=== PATIENT | female | born 2000 | race African-American/Black ===

== ENCOUNTER 2019-01-17 10:36 | Emergency (ER) | payer SELFPAY ==
--- NOTE | 2019-01-17 10:50 | ER Document Report ---
ED Medical Screen (RME) - General Chief Complaint: Nausea/Vomiting Stated Complaint: VOMITING Time Seen by Provider: 01/17/19 10:49 Mode of Arrival: Ambulatory Information source: Patient TRAVEL OUTSIDE OF THE [place] IN LAST 30 DAYS: No - HPI Patient complains to provider of: vomiting Onset: Other - pt with c/o vomiting intermittently for the past several weeks. Denies diarrhea - Related Data Allergies/Adverse Reactions: No Known Allergies Allergy (Verified 01/17/19 10:37) Physical Exam - Vital signs Vitals: Temp Pulse Resp BP Pulse Ox 98.5 F 73 16 119/65 100 01/17/19 10:40 01/17/19 10:40 01/17/19 10:40 01/17/19 10:40 01/17/19 10:40 Course - Vital Signs Vital signs: Temp Pulse Resp BP Pulse Ox 98.5 F 73 16 119/65 100 01/17/19 10:40 01/17/19 10:40 01/17/19 10:40 01/17/19 10:40 01/17/19 10:40
[2019-01-17 11:33] LABS: APPEARANCE,URINE SLIGHTLY-CLOUDY; BILIRUBIN,URINE NEGATIVE (NEGATIVE); COLOR,URINE YELLOW; GLUCOSE, URINE NEGATIVE (NEGATIVE); KETONES,URINE NEGATIVE (NEGATIVE); LEUKOCYTE ESTERASE,URINE NEGATIVE (NEGATIVE); NITRITE,URINE NEGATIVE (NEGATIVE); PROTEIN,URINE NEGATIVE (NEGATIVE); URINE SPECIFIC GRAVITY 1.011; UROBILINOGEN,URINE NEGATIVE mg/dL (<2.0)
[2019-01-17] MEDS ORDERED: ONDANSETRON 4 MG TAB.RAPDIS PO ONE (11:49)
--- NOTE | 2019-01-17 11:49 | ER Document Report ---
ED General - General Chief Complaint: Nausea/Vomiting Stated Complaint: VOMITING Time Seen by Provider: 01/17/19 10:49 Primary Care Provider: [facility] [Provider Group] - Follow up in 3-5 days Mode of Arrival: Ambulatory TRAVEL OUTSIDE OF THE [place] IN LAST 30 DAYS: No - HPI Notes: Patient is a 18-year-old female that presents to the emergency department for chief complaint of cough, hemoptysis, and vomiting. Patient reports daily cough with intermittent episodes of hemoptysis. She states it is usually a dark red and streaky. She has not had any hemoptysis today. She does states she smokes tobacco occasionally and smokes marijuana daily and last smoked a few hours ago. Patient is also had nausea and vomiting for the last few months. She states it is not every day but intermittently she will have 2-3 episodes of vomiting. She has had a negative home test. Patient states that she has missed so much work that work has requested she obtain a doctor's note prior to returning which is why she is in the emergency room today. She denies any chest pain but does endorse some dyspnea with exertion. She states her mother has had a DVT before but she is not sure the cause. She denies any lower extremity cramping or swelling. She denies any recent estrogen use, surgery, travel, immobilizations, palpitations, light headedness or chest pain. Past Medical History: Negative Past Surgical History: Negative Social History: Daily marijuana, occasional tobacco, denies alcohol Family History: Reviewed and noncontributory for presenting illness Allergies: Reviewed, see documented allergy list. REVIEW OF SYSTEMS: CONSTITUTIONAL : No fever No chills No diaphoresis No recent illness EENT: No vision changes No congestion No sore throat CARDIOVASCULAR: No chest pain No palpitations RESPIRATORY: shortness of breath cough difficulty breathing GASTROINTESTINAL: No abdominal pain nausea vomiting No diarrhea GENITOURINARY: No dysuria No hematuria No difficulty urinating MUSCULOSKELETAL: No back pain No leg pain No arm pain SKIN: No rashes No lesions LYMPHATIC: No swollen, enlarged glands. NEUROLOGICAL: No lightheadedness No headache No weakness No paresthesias PSYCHIATRIC: No anxiety No depression PHYSICAL EXAMINATION: Vital signs reviewed, nursing noted reviewed. GENERAL: Well-appearing, well-nourished and in no acute distress. HEAD: Atraumatic, normocephalic. EYES: Eyes appear normal, extraocular movements intact, sclera anicteric, conjunctiva are normal. ENT: nares patent, oropharynx clear without exudates. Moist mucous membranes. NECK: Normal range of motion, supple without lymphadenopathy LUNGS: Breath sounds clear to auscultation bilaterally and equal. No wheezes rales or rhonchi. HEART: Regular rate and rhythm without murmurs ABDOMEN: Soft, nontender, normoactive bowel sounds. No rebound, guarding, or rigidity. No masses appreciated. EXTREMITIES: Nontender, good range of motion, no pitting or edema. NEUROLOGICAL: No focal neurological deficits. Moves all extremities spontaneously Motor and sensory grossly intact on exam. PSYCH: Normal mood, normal affect. SKIN: Warm, Dry, normal turgor, no rashes or lesions noted on exposed skin - Related Data Allergies/Adverse Reactions: No Known Allergies Allergy (Verified 01/17/19 10:37) Past Medical History - General Information source: Patient - Social History Smoking Status: Never Smoker Chew tobacco use (# tins/day): No Frequency of alcohol use: None Drug Abuse: None Family History: Reviewed & Not Pertinent Patient has suicidal ideation: No Patient has homicidal ideation: No Renal/ Medical History: Denies: Hx Peritoneal Dialysis Physical Exam - Vital signs Vitals: Temp Pulse Resp BP Pulse Ox 98.5 F 73 16 119/65 100 01/17/19 10:40 01/17/19 10:40 01/17/19 10:40 01/17/19 10:40 01/17/19 10:40 Course - Re-evaluation Re-evalutation: 01/17/19 11:48 Vitals reviewed. Nursing notes reviewed. Patient is resting comfortably and in no acute distress. Her lung sounds are clear to auscultation bilaterally. Patient was given Zofran for her nausea. She was counseled at length on stopping daily marijuana which may be the cause of her persistent nausea and vomiting as well as cough and hemoptysis. Blood work will be obtained to screen for underlying PE given her family history and complaint of hemoptysis. 01/17/19 12:34 Patient's lab work shows a negative d-dimer and my suspicion for PE is very minimal, I do not feel CTA is currently indicated. She has no leukocytosis. She has normal renal function. Patient is not anemic. Chest x-ray is still pending. 01/17/19 13:23 Patient's x-ray shows no acute cardia pulmonary process. She is in no acute respiratory distress. She is requesting to leave the emergency room. I gave her a referral at the [facility] and recommended establishing with a primary care to further investigate her ongoing issues. She will return to the emergency room for new or worsening symptoms. She was again encouraged to stop smoking marijuana. She is stable at discharge Laboratory 01/17/19 01/17/19 01/17/19 11:01 11:31 11:31 WBC 5.9 RBC 4.49 Hgb 14.1 Hct 41.1 MCV 92 MCH 31.4 MCHC 34.3 RDW 15.7 H Plt Count 322 Seg Neutrophils % 47.8 Lymphocytes % 40.0 Monocytes % 10.0 Eosinophils % 1.5 Basophils % 0.7 Absolute Neutrophils 2.8 Absolute Lymphocytes 2.4 Absolute Monocytes 0.6 Absolute Eosinophils 0.1 Absolute Basophils 0.0 D-Dimer Sodium 140.8 Potassium 3.9 Chloride 105 Carbon Dioxide 26 Anion Gap 10 BUN 7 Creatinine 0.73 Est GFR ( Amer) > 60 Est GFR (Non-Af Amer) > 60 Glucose 84 Calcium 10.4 H Total Bilirubin 0.4 Direct Bilirubin 0.1 Neonat Total Bilirubin Not Reportable Neonat Direct Bilirubin Not Reportable Neonat Indirect Bili Not Reportable AST 21 ALT 25 Alkaline Phosphatase 85 Total Protein 7.5 Albumin 4.4 Urine Color YELLOW Urine Appearance SLIGHTLY-CLOUDY Urine pH 7.0 Ur Specific [place] 1.011 Urine Protein NEGATIVE Urine Glucose (UA) NEGATIVE Urine Ketones NEGATIVE Urine Blood NEGATIVE Urine Nitrite NEGATIVE Urine Bilirubin NEGATIVE Urine Urobilinogen NEGATIVE Ur Leukocyte Esterase NEGATIVE Urine WBC (Auto) 1 Squamous Epi Cells Auto 6 Urine Mucus (Auto) RARE Urine Ascorbic Acid NEGATIVE Urine HCG, Qual NEGATIVE 01/17/19 11:31 WBC RBC Hgb Hct MCV MCH MCHC RDW Plt Count Seg Neutrophils % Lymphocytes % Monocytes % Eosinophils % Basophils % Absolute Neutrophils Absolute Lymphocytes Absolute Monocytes Absolute Eosinophils Absolute Basophils D-Dimer 0.46 Sodium Potassium Chloride Carbon Dioxide Anion Gap BUN Creatinine Est GFR ( Amer) Est GFR (Non-Af Amer) Glucose Calcium Total Bilirubin Direct Bilirubin Neonat Total Bilirubin Neonat Direct Bilirubin Neonat Indirect Bili AST ALT Alkaline Phosphatase Total Protein Albumin Urine Color Urine Appearance Urine pH Ur Specific [place] Urine Protein Urine Glucose (UA) Urine Ketones Urine Blood Urine Nitrite Urine Bilirubin Urine Urobilinogen Ur Leukocyte Esterase Urine WBC (Auto) Squamous Epi Cells Auto Urine Mucus (Auto) Urine Ascorbic Acid Urine HCG, Qual Chest X-Ray 01/17/19 12:34 IMPRESSION: NO SIGNIFICANT RADIOGRAPHIC FINDING IN THE CHEST. - Vital Signs Vital signs: Temp Pulse Resp BP Pulse Ox 98.5 F 73 16 119/65 100 01/17/19 10:40 01/17/19 10:40 01/17/19 10:40 01/17/19 10:40 01/17/19 10:40 - Laboratory Result Diagrams: 01/17/19 11:31 01/17/19 11:31 Laboratory results interpreted by me: 01/17/19 01/17/19 11:31 11:31 RDW 15.7 H Calcium 10.4 H Discharge - Discharge Clinical Impression: Hemoptysis Dyspnea Qualifiers: Dyspnea type: other forms of dyspnea Qualified Code(s): R06.09 - Other forms of dyspnea Cyclical vomiting Qualifiers: Vomiting Intractability: non-intractable Nausea presence: with nausea Qualified Code(s): G43.A0 - Cyclical vomiting, not intractable Condition: Stable Disposition: HOME, SELF-CARE Instructions: Hemoptysis ([facility]), Nausea or Vomiting, Nonspecific ([facility]) Additional Instructions: Please return to the emergency department if you have any worsening, or concern of your symptoms. Please return to the emergency department if you develop chest pain, difficulty breathing, severe abdominal pain, or ongoing vomiting. Please follow-up with your primary care physician in 2-3 days and any other recommended physicians. If prescribed, take all medications as directed. If you have any questions or concerns do not hesitate to return the emergency department for evaluation. Stop smoking marijuana as this is a likely cause of your cough and vomiting If you continue to cough up blood please return to the emergency room for reevaluation. Prescriptions: Ondansetron [Zofran Odt 4 mg Tablet] 1 tab PO Q4H PRN #15 tab.rapdis PRN Reason: For Nausea/Vomiting Referrals: [facility] [Provider Group] - Follow up in 3-5 days
[2019-01-17 11:58] LABS: ABSOLUTE EOSINOPHILS # (AUTO) 0.1 10^3/uL (0.0-0.6); ABSOLUTE LYMPHOCYTES (AUTO) 2.4 10^3/uL (0.5-4.7); ABSOLUTE MONOCYTES (AUTO) 0.6 10^3/uL (0.1-1.4); ABSOLUTE NEUT (AUTO) 2.8 10^3/uL (1.7-8.2); BASOPHILS % (AUTO) 0.7 % (0-2); EOSINOPHILS % (AUTO) 1.5 % (0-6); HEMATOCRIT 41.1 % (36.0-47.0); HEMOGLOBIN 14.1 g/dL (12.0-15.5); MEAN CORPUSCULAR HEMOGLOBIN 31.4 pg (27.0-33.4); MEAN CORPUSCULAR HGB CONC 34.3 g/dL (32.0-36.0); MEAN CORPUSCULAR VOLUME 92 fl (80-97); PLATELET COUNT 322 10^3/uL (150-450); RED BLOOD COUNT 4.49 10^6/uL (3.72-5.28); RED CELL DISTRIBUTION WIDTH 15.7 % (11.5-14.0); SEGMENTED NEUTROPHILS % (AUTO) 47.8 % (42-78); TOTAL CELLS COUNTED % (AUTO) 100 %; WHITE BLOOD COUNT 5.9 10^3/uL (4.0-10.5)
[2019-01-17 12:03] LABS: ALANINE AMINOTRANSFERASE 25 U/L (5-35); ALBUMIN 4.4 g/dL (3.7-5.6); ALKALINE PHOSPHATASE 85 U/L (50-135); ANION GAP 10 (5-19); ASPARTATE AMINO TRANSFERASE 21 U/L (5-30); BILIRUBIN,DIRECT 0.1 mg/dL (0.0-0.4); BILIRUBIN,TOTAL 0.4 mg/dL (0.2-1.3); BLOOD UREA NITROGEN 7 mg/dL (7-20); CALCIUM 10.4 mg/dL (8.4-10.2); CARBON DIOXIDE 26 mmol/L (22-30); CHLORIDE 105 mmol/L (98-107); GLUCOSE 84 mg/dL (75-110); POTASSIUM 3.9 mmol/L (3.6-5.0); SODIUM 140.8 mmol/L (137-145); TOTAL PROTEIN 7.5 g/dL (6.3-8.2)
--- NOTE | 2019-01-17 13:18 | RADIOLOGY REPORT (SQ) ---
EXAM DESCRIPTION: CHEST SINGLE VIEW COMPLETED DATE/TIME: 01/17/2019 1:11 pm REASON FOR STUDY: cough COMPARISON: None. NUMBER OF VIEWS: One view. TECHNIQUE: Single frontal radiographic view of the chest acquired. LIMITATIONS: None. FINDINGS: LUNGS AND PLEURA: No opacities, masses or pneumothorax. No pleural effusion. MEDIASTINUM AND HILAR STRUCTURES: No masses. Contour normal. HEART AND VASCULAR STRUCTURES: Heart normal in size. Normal vasculature. BONES: No acute findings. HARDWARE: None in the chest. OTHER: No other significant finding. IMPRESSION: NO SIGNIFICANT RADIOGRAPHIC FINDING IN THE CHEST. TECHNICAL DOCUMENTATION: JOB ID: [id number] [employer]- All Rights Reserved Reading location - IP/workstation name: [email or web address]
[2019-01-17 13:26] VITALS: BP 115/49
== END 2019-01-17 13:29 | disposition home or self-care (01) ==
LOC: ER 10:36
DX: R06.09 Other forms of dyspnea (principal); G43.A0 Cyclical vomiting, in migraine, not intractable; R05 Cough
CPT/HCPCS: 99283; 36415; 85025; 81025; 80053; 81001; 85379; 71045; S0119

== ENCOUNTER 2019-05-01 09:00 | Emergency (ER) | payer SELFPAY ==
--- NOTE | 2019-05-01 09:24 | ER Document Report ---
ED Medical Screen (RME) - General Chief Complaint: Vaginal Bleeding Stated Complaint: VAGINAL BLEEDING Time Seen by Provider: 05/01/19 09:23 Mode of Arrival: Ambulatory Information source: Patient Notes: Patient is a otherwise healthy 19-year-old female G2, P0 presenting to the emergency department with chief complaint of vaginal bleeding. Patient reports last normal period was on 03/23/2019. Patient reports she believes she is approximately 5 to 6 weeks . Patient states bleeding started several days ago, she states it is very heavy and she is now passing small clots. Patient does not know her blood type. Exam: Abdomen soft, nontender. I have greeted and performed a rapid initial assessment of this patient. A comprehensive ED assessment and evaluation of the patient, analysis of test results and completion of the medical decision making process will be conducted by additional ED providers. I have specifically instructed the patient or family members with the patient to immediately return to any nursing staff should anything change in the patient's condition or with their chief complaint. This medical record was dictated with voice recognizing software. There may be grammatical, syntax errors that are unintended. TRAVEL OUTSIDE OF THE [place] IN LAST 30 DAYS: No - Related Data Allergies/Adverse Reactions: No Known Allergies Allergy (Verified 05/01/19 09:01) Past Medical History Renal/ Medical History: Denies: Hx Peritoneal Dialysis Physical Exam - Vital signs Vitals: Temp Pulse Resp BP Pulse Ox 98.2 F 81 16 128/55 H 99 05/01/19 09:17 05/01/19 09:17 05/01/19 09:17 05/01/19 09:17 05/01/19 09:17 Course - Vital Signs Vital signs: Temp Pulse Resp BP Pulse Ox 98.2 F 81 16 128/55 H 99 05/01/19 09:17 05/01/19 09:17 05/01/19 09:17 05/01/19 09:17 05/01/19 09:17
[2019-05-01 09:49] LABS: ABSOLUTE EOSINOPHILS # (AUTO) 0.1 10^3/uL (0.0-0.6); ABSOLUTE LYMPHOCYTES (AUTO) 2.1 10^3/uL (0.5-4.7); ABSOLUTE MONOCYTES (AUTO) 0.6 10^3/uL (0.1-1.4); ABSOLUTE NEUT (AUTO) 3.4 10^3/uL (1.7-8.2); BASOPHILS % (AUTO) 0.7 % (0-2); EOSINOPHILS % (AUTO) 2.2 % (0-6); HEMATOCRIT 42.7 % (36.0-47.0); HEMOGLOBIN 14.1 g/dL (12.0-15.5); LYMPHOCYTES % (AUTO) 33.7 % (13-45); MEAN CORPUSCULAR HEMOGLOBIN 31.2 pg (27.0-33.4); MEAN CORPUSCULAR VOLUME 95 fl (80-97); MONOCYTES % (AUTO) 10.2 % (3-13); PLATELET COUNT 310 10^3/uL (150-450); RED BLOOD COUNT 4.52 10^6/uL (3.72-5.28); SEGMENTED NEUTROPHILS % (AUTO) 53.2 % (42-78); TOTAL CELLS COUNTED % (AUTO) 100 %; WHITE BLOOD COUNT 6.4 10^3/uL (4.0-10.5)
[2019-05-01 10:08] LABS: APPEARANCE,URINE SLIGHTLY-CLOUDY; BILIRUBIN,URINE NEGATIVE (NEGATIVE); COLOR,URINE YELLOW; GLUCOSE, URINE NEGATIVE (NEGATIVE); KETONES,URINE NEGATIVE (NEGATIVE); LEUKOCYTE ESTERASE,URINE NEGATIVE (NEGATIVE); NITRITE,URINE NEGATIVE (NEGATIVE); PROTEIN,URINE NEGATIVE (NEGATIVE); URINE SPECIFIC GRAVITY 1.023; UROBILINOGEN,URINE NEGATIVE mg/dL (<2.0)
--- NOTE | 2019-05-01 10:59 | RADIOLOGY REPORT (SQ) ---
EXAM DESCRIPTION: U/S OB TRANSVAGINAL W/O DOP COMPLETED DATE/TIME: 05/01/2019 10:31 am REASON FOR STUDY: preg, vag bleed COMPARISON: None. TECHNIQUE: Transvaginal static and realtime grayscale images acquired of the pelvis. Additional jeramie cted spectral and color Doppler images recorded. All images stored on PACs. [id number] CLINICAL DATES: LMP 03/23/2019. 5 weeks 4 days LIMITATIONS: None. FINDINGS: FETUS: No intrauterine gestation is identified at this time. UTERUS: No masses. No anomalies. CERVICAL LENGTH: 2.9 cm. Closed. RIGHT ADNEXA: Normal ovary with normal vascular flow. 3.3 x 2 x 1.6 cm. There is a small cyst measu ring 18 x 10 x 13 mm. No adnexal free fluid. No adnexal masses. LEFT ADNEXA: Normal ovary with normal vascular flow. 2.3 x 1.8 x 1.5 cm. No adnexal free fluid. No adnexal masses. FREE FLUID: None. OTHER: The endometrium measures 6 mm. IMPRESSION: No intrauterine gestation is seen at this time. Follow-up as clinically indicated. TECHNICAL DOCUMENTATION: JOB ID: [id number] [employer]- All Rights Reserved rev-03/14 Reading location - IP/workstation name: [email or web address]
--- NOTE | 2019-05-01 11:08 | ER Document Report ---
ED General - General Chief Complaint: Vaginal Bleeding Stated Complaint: VAGINAL BLEEDING Time Seen by Provider: 05/01/19 09:23 Mode of Arrival: Ambulatory Notes: 19-year-old G2, P0 female LMP 03/23/2019 presents to the emergency department with chief complaint of vaginal bleeding. She believes she is 5 to 6 weeks . She said her bleeding started on Saturday as spotting and has gotten heavier to the point where she is now passing small clots. She denies dizziness or lightheadedness, weakness, numbness or paresthesias, complains of abdominal cramping, denies any acute shortness of breath or chest pain. Denies urinary symptoms. Does not know her blood type. No other complaints TRAVEL OUTSIDE OF THE [place] IN LAST 30 DAYS: No - Related Data Allergies/Adverse Reactions: No Known Allergies Allergy (Verified 05/01/19 09:01) Past Medical History - General Information source: Patient - Social History Smoking Status: Unknown if Ever Smoked Family History: Reviewed & Not Pertinent Patient has suicidal ideation: No Patient has homicidal ideation: No Renal/ Medical History: Denies: Hx Peritoneal Dialysis Review of Systems - Review of Systems Constitutional: See HPI EENT: No symptoms reported Cardiovascular: See HPI Respiratory: See HPI Gastrointestinal: See HPI Genitourinary: See HPI Female Genitourinary: See HPI Musculoskeletal: No symptoms reported Skin: No symptoms reported Hematologic/Lymphatic: No symptoms reported Neurological/Psychological: See HPI Physical Exam - Vital signs Vitals: Temp Pulse Resp BP Pulse Ox 98.2 F 81 16 128/55 H 99 05/01/19 09:17 05/01/19 09:17 05/01/19 09:17 05/01/19 09:17 05/01/19 09:17 - Notes Notes: PHYSICAL EXAMINATION: Reviewed vital signs and charting by RN GENERAL: Alert, interacts well. No acute distress. HEAD: Normocephalic, atraumatic. EYES: Pupils equal and round. Extraocular movements intact. ENT: Oral mucosa moist, tongue midline. NECK: Full range of motion. Trachea midline. LUNGS: Clear to auscultation bilaterally, no wheezes, rales, or rhonchi. No respiratory distress. HEART: Regular rate and rhythm. No murmur ABDOMEN: soft, non-tender. No distention. Bowel sounds present EXTREMITIES: Moves all 4 extremities spontaneously. No edema, No cyanosis. PSYCH: Normal affect, normal mood. SKIN: Warm, dry, normal turgor. No rashes or lesions noted. Course - Re-evaluation Re-evalutation: 05/01/19 10:59 Overall well-appearing in no acute distress. Transvaginal ultrasound completed and pending. RhoGam completed and patient is B negative. Patient will receive the RhoGam shot. 05/01/19 11:58 Ultrasound completed. No evidence of intrauterine gestation. No evidence of ectopic at this time. Cervical os was closed. Plan to perform a pelvic exam. 05/01/19 12:42 Pelvic exam did show some mild bleeding, cervical os was closed. I explained to patient that it just may be too early because she is only 5 weeks but it could also be a miscarriage as well. I gave her strict instructions to return here in 48 hours for repeat testing. Her vital signs are within normal limits. She is stable for discharge. - Vital Signs Vital signs: Temp Pulse Resp BP Pulse Ox 98.2 F 81 16 128/55 H 99 05/01/19 09:17 05/01/19 09:17 05/01/19 09:17 05/01/19 09:17 05/01/19 09:17 - Laboratory Result Diagrams: 05/01/19 09:38 Laboratory results interpreted by me: 05/01/19 05/01/19 05/01/19 09:38 09:38 09:38 RDW 15.0 H Beta HCG, Quant 1370.20 H Urine Blood LARGE H Discharge - Discharge Clinical Impression: Vaginal bleeding during Condition: Stable Disposition: HOME, SELF-CARE Additional Instructions: You were seen in the emergency department this morning for vaginal bleeding while . Your ultrasound at the time did not show any live intrauterine but it might just be too early as you were only about 5 weeks . It is very important that you follow-up here in 48 hours for repeat testing. Please follow closely with your primary care [facility] [employer]. Please return if you develop severe abdominal pain, bleeding that goes through more than 2 pads for more than 2 hours, pass out, or have any other symptoms that are concerning to you.
[2019-05-01 12:51] VITALS: BP 112/65
--- NOTE | 2019-05-02 14:39 | ER Document Report ---
Doctor's Note Notes: 05/02/19 14:37 I received a call from the blood bank stating that the patient's RhoGam was still in the lab and she never received it prior to discharge yesterday. Patient is Rh- type B. I attempted to call the patient to let her know but there was no answer and it did not go to voicemail. Patient is supposed to follow-up for 48-hour follow-up on Saturday, May 03, 2019. I will make another attempt to call her today.
== END 2019-05-01 12:53 | disposition home or self-care (01) ==
LOC: ER 09:00
DX: O20.9 Hemorrhage in early pregnancy, unspecified (principal); Z3A.01 Less than 8 weeks gestation of pregnancy
CPT/HCPCS: 36415; 76817; 81001; 84702; 85025; 86850; 86900; 86901; 99284

== ENCOUNTER 2019-05-03 07:27 | Emergency (ER) | payer SELFPAY ==
--- NOTE | 2019-05-03 09:05 | ER Document Report ---
ED Medical Screen (RME) - General Chief Complaint: Vag Bleeding, +preg <12wks Stated Complaint: VAGINAL BLEEDING Time Seen by Provider: 05/03/19 08:55 Mode of Arrival: Ambulatory Information source: Patient Notes: A patient returns to the emergency department for repeat beta-hCG. Patient was evaluated 2 days ago for vaginal bleeding . Patient reports bleeding has decreased denies abdominal pain. Review of chart notes patient is been negative and has not received her RhoGam injection. No other complaints such as fever vomiting diarrhea. Patient is G2, P0. She would like to wait for her hCG results I have greeted and performed a rapid initial assessment of this patient. A comprehensive ED assessment and evaluation of the patient, analysis of test results and completion of the medical decision making process will be conducted by additional ED providers. Dictation of this chart was performed using voice recognition software; therefore, there may be some unintended grammatical errors. TRAVEL OUTSIDE OF THE [place] IN LAST 30 DAYS: No - Related Data Allergies/Adverse Reactions: No Known Allergies Allergy (Verified 05/03/19 07:31) Past Medical History Renal/ Medical History: Denies: Hx Peritoneal Dialysis Physical Exam - Vital signs Vitals: Temp Pulse Resp BP Pulse Ox 99.3 F 82 16 118/61 98 05/03/19 07:33 05/03/19 07:33 05/03/19 07:33 05/03/19 07:33 05/03/19 07:33 Course - Vital Signs Vital signs: Temp Pulse Resp BP Pulse Ox 99.3 F 82 16 118/61 98 05/03/19 07:33 05/03/19 07:33 05/03/19 07:33 05/03/19 07:33 05/03/19 07:33
--- NOTE | 2019-05-03 09:46 | ER Document Report ---
ED General - General Chief Complaint: Vag Bleeding, +preg <12wks Stated Complaint: VAGINAL BLEEDING Time Seen by Provider: 05/03/19 08:55 Mode of Arrival: Ambulatory Notes: 19-year-old G2, P0 female LMP 03/23/2019 presents to the emergency department for 48-hour hCG recheck she believes she is 5 to 6 weeks . She started bleeding last Saturday when I saw her 48 hours ago she was still bleeding bright red blood and passing clots. Today she states that the bleeding has mostly subsided and just complains of a very minor dull pressure in her pelvic area. Transvaginal ultrasound at the time did not show a live intrauterine gestation but she was estimated to only be about 5 weeks . She denies dizziness or lightheadedness, weakness, numbness or paresthesias, complains of abdominal cramping, denies any acute shortness of breath or chest pain. Denies urinary symptoms. RhoGam was ordered but patient left before she received a shot and she is been negative. She will receive the shot here today. TRAVEL OUTSIDE OF THE [place] IN LAST 30 DAYS: No - Related Data Allergies/Adverse Reactions: No Known Allergies Allergy (Verified 05/03/19 07:31) Past Medical History - General Information source: Patient - Social History Smoking Status: Former Smoker Frequency of alcohol use: None Drug Abuse: None Family History: Reviewed & Not Pertinent Patient has suicidal ideation: No Patient has homicidal ideation: No Renal/ Medical History: Denies: Hx Peritoneal Dialysis Review of Systems - Review of Systems Constitutional: See HPI EENT: No symptoms reported Cardiovascular: See HPI Respiratory: See HPI Gastrointestinal: See HPI Genitourinary: See HPI Female Genitourinary: See HPI Musculoskeletal: No symptoms reported Skin: No symptoms reported Hematologic/Lymphatic: No symptoms reported Neurological/Psychological: No symptoms reported Physical Exam - Vital signs Vitals: Temp Pulse Resp BP Pulse Ox 99.3 F 82 16 118/61 98 05/03/19 07:33 05/03/19 07:33 05/03/19 07:33 05/03/19 07:33 05/03/19 07:33 - Notes Notes: PHYSICAL EXAMINATION: Reviewed vital signs and charting by RN GENERAL: Alert, interacts well. No acute distress. HEAD: Normocephalic, atraumatic. EYES: Pupils equal and round. Extraocular movements intact. ENT: Oral mucosa moist, tongue midline. NECK: Full range of motion. Trachea midline. LUNGS: Clear to auscultation bilaterally, no wheezes, rales, or rhonchi. No respiratory distress. HEART: Regular rate and rhythm. No murmur ABDOMEN: soft, very mild suprapubic tenderness. No distention. Bowel sounds present EXTREMITIES: Moves all 4 extremities spontaneously. No edema, No cyanosis. PSYCH: Normal affect, normal mood. SKIN: Warm, dry, normal turgor. No rashes or lesions noted. Course - Re-evaluation Re-evalutation: 05/03/19 09:49 Patient re-presents for 48-hour hCG check. Patient will also receive RhoGam shot as she is discharged last visit prior to receiving it. Labs pending. 05/03/19 10:18 Beta hCG has trended down from 1832 about 300. I explained to the patient that she most likely has suffered from a spontaneous . I told patient that she needs to follow-up with [facility] to trend her hCG until it goes to 0 and ensure there is no retained products of conception. Patient understands and agrees to plan. Vital signs are within normal limits. She is stable for discharge. - Vital Signs Vital signs: Temp Pulse Resp BP Pulse Ox 99.3 F 82 16 118/61 98 05/03/19 07:33 05/03/19 07:33 05/03/19 07:33 05/03/19 07:33 05/03/19 07:33 - Laboratory Laboratory results interpreted by me: 05/03/19 09:20 Beta HCG, Quant 348.32 H Discharge - Discharge Clinical Impression: Inapp chg hCG early preg, Miscarriage, threatened, early , Vaginal bleeding during Condition: Stable Disposition: HOME, SELF-CARE Additional Instructions: You were seen in the emergency department. Unfortunately, your hCG levels have dropped considerably. We expect these levels to double every 48 hours. This is very concerning for a probable miscarriage. It is important that you continue to trend these levels and follow-up with [facility] in 48 hours for a recheck. If you develop significant vaginal bleeding, have severe abdominal pain, have intractable nausea or vomiting, passout, have acute sh ortness of breath or chest pain, or have any other concerning symptoms please merely return to the emergency department. Referrals: BLAIR SALAZAR MD [ACTIVE STAFF] - Follow up as needed
[2019-05-03 10:50] VITALS: BP 125/61
== END 2019-05-03 10:50 | disposition home or self-care (01) ==
LOC: ER 07:27
DX: O20.0 Threatened abortion (principal); O26.891 Other specified pregnancy related conditions, first trimester; R10.9 Unspecified abdominal pain; Z3A.01 Less than 8 weeks gestation of pregnancy; Z87.891 Personal history of nicotine dependence
CPT/HCPCS: 99284; 86900; 86901; 36415; 86850; 84702; J2790

== ENCOUNTER 2019-05-03 13:59 | Emergency (ER) | payer SELFPAY ==
[2019-05-03 14:07] VITALS: BP 124/81
--- NOTE | 2019-05-03 15:05 | ER Document Report ---
HPI - HPI Patient complains to provider of: RhoGam injection Time Seen by Provider: 05/03/19 14:54 Onset: Yesterday Onset/Duration: Persistent Pain Level: 0 Context: Patient has been seen recently for vaginal bleeding and is Rh-. Patient has a downward trending hCG test worrisome for miscarriage. Patient has not received a RhoGam injection since her bleeding started. Patient was advised to return for RhoGam shot. Patient denies any lightheadedness dizziness. Patient states that bleeding has started to lessen. Exacerbated by: Denies Relieved by: Denies Similar symptoms previously: Yes Recently seen / treated by doctor: Yes - ROS ROS below otherwise negative: Yes Systems Reviewed and Negative: Yes All other systems reviewed and negative - CONSTITUTIONAL Constitutional: DENIES: Fever, Chills - NEURO Neurology: DENIES: Headache, Weakness - GASTROINTESTINAL Gastrointestinal: DENIES: Nausea - REPRODUCTIVE Reproductive: REPORTS: :, Abnormal bleeding / discharge - DERM Skin Color: Normal Skin Problems: None Past Medical History - General Information source: Patient - Social History Smoking Status: Never Smoker Frequency of alcohol use: None Drug Abuse: None Occupation: None Lives with: Spouse/Significant other Family History: Reviewed & Not Pertinent - Medical History Medical History: Negative Renal/ Medical History: Denies: Hx Peritoneal Dialysis Surgical Hx: Negative Vertical Provider Document - CONSTITUTIONAL Agree With Documented VS: Yes Exam Limitations: No Limitations General Appearance: WD/WN, No Apparent Distress - INFECTION CONTROL TRAVEL OUTSIDE OF THE [place] IN LAST 30 DAYS: No - HEENT HEENT: Atraumatic, Normocephalic - NECK Neck: Normal Inspection - RESPIRATORY Respiratory: No Respiratory Distress - MUSCULOSKELETAL/EXTREMETIES Musculoskeletal/Extremeties: MAEW - NEURO Level of Consciousness: Awake, Alert, Appropriate Motor/Sensory: No Motor Deficit - DERM Integumentary: Warm, Dry Course - Vital Signs Vital signs: Temp Pulse Resp BP Pulse Ox 98.7 F 96 16 124/81 97 05/03/19 14:05 05/03/19 14:05 05/03/19 14:05 05/03/19 14:05 05/03/19 14:05 - Laboratory Laboratory results interpreted by me: 05/03/19 15:03 Reviewed labs from patient's previous ER visit. Discharge - Discharge Clinical Impression: Vagina bleeding, Need for rhogam due to Rh negative mother Condition: Stable Disposition: HOME, SELF-CARE Instructions: Rhogam ([facility]) Additional Instructions: Return immediately for any new or worsening symptoms Followup with your primary care provider, call tomorrow to make a followup appointment Follow-up with your dressage instructor for recheck, call tomorrow for an appointment Referrals: [facility] [Provider Group] - Follow up tomorrow
== END 2019-05-03 16:00 | disposition home or self-care (01) ==
LOC: ER 13:59
DX: O36.0990 Maternal care for other rhesus isoimmunization, unspecified trimester, not applicable or unspecified (principal); O46.90 Antepartum hemorrhage, unspecified, unspecified trimester; Z3A.00 Weeks of gestation of pregnancy not specified
CPT/HCPCS: 99283

== ENCOUNTER 2019-05-07 20:21 | Emergency (ER) | payer MEDICAID ==
--- NOTE | 2019-05-07 20:44 | ER Document Report ---
ED Medical Screen (RME) - General Chief Complaint: Psych Problem Stated Complaint: IVC Time Seen by Provider: 05/07/19 20:41 Mode of Arrival: Ambulatory Information source: Patient Notes: 19-year-old female presented to ED for IVC after she told a mental health worker that she had thoughts of suicide by taking a gun and shooting herself. According to the IVC paperwork she is abusing marijuana multiple joints a day and she is . Patient is alert oriented respirations regular and unlabored speaking in full sentences. She states she smokes 3 cigarettes a day and does not drink or do any drugs according to the paper she does smoke marijuana. She states she has a history of depression and bipolar and she lives with her significant other and their friend. Patient states she is not going on that blood and urine to be obtained and she is not going to have an EKG done. She states she felt was told that she just had to come and talk to somebody she did not know that she had to get blood and urine done. She states she had blood drawn today and she is not getting blood drawn again today. Patient was informed of the orders for IVC and she states it was not going to happen. I have greeted and performed a rapid initial assessment of this patient. A comprehensive ED assessment and evaluation of the patient, analysis of test results and completion of medical decision making process will be conducted by an additional ED providers. Dictation of this chart was performed using voice recognition software; therefore, there may be some unintended grammatical errors. TRAVEL OUTSIDE OF THE [place] IN LAST 30 DAYS: No - Related Data Allergies/Adverse Reactions: No Known Allergies Allergy (Verified 05/03/19 14:01) Past Medical History Renal/ Medical History: Denies: Hx Peritoneal Dialysis Physical Exam - Vital signs Vitals: Temp Pulse Resp BP Pulse Ox 98.5 F 90 16 92/65 L 98 05/07/19 20:30 05/07/19 20:30 05/07/19 20:30 05/07/19 20:30 05/07/19 20:30 Course - Vital Signs Vital signs: Temp Pulse Resp BP Pulse Ox 98.5 F 90 16 92/65 L 98 05/07/19 20:30 05/07/19 20:30 05/07/19 20:30 05/07/19 20:30 05/07/19 20:30
--- NOTE | 2019-05-07 22:34 | ER Document Report ---
Addendum entered and electronically signed by PAULETTE MURRELL MD 05/08/19 09:21: Discharge - Discharge Clinical Impression: Suicidal ideation, Marijuana abuse, Bereavement Condition: Stable Disposition: HOME, SELF-CARE Additional Instructions: You have been seen by both medical and behavioral health teams and have been deemed appropriate for discharge. You are encouraged to use your support system during this time of grief. You have been provided a local resource list of area providers if you change your mind for outpatient mental health services. DEPRESSION: Your evaluation reveals that you have mental depression. While symptoms may be vague, they often include disturbance of sleep, fatigue, loss of appetite, and general loss of interest in life. While depression may be a side effect of drugs, or a reaction to a major change in your life, many cases have no known cause. If depression is acute, and related to a major loss in your life, you can expect it to clear completely with time. If you have been depressed a long time, are prone to repeated bouts of depression or low mood, or have been thin ramirez of suicide, get help. Depression can be treated with anti-depressant medication and counselling. Long-term depression will often take a few weeks to clear, even with appropriate medication. Follow-up care is important. SUICIDAL IDEATION: Suicidal ideation is a common medical term for thoughts about suicide, which may be as detailed as a formulated plan, without the suicidal act itself. Although most people who undergo suicidal ideation do not commit suicide, some go on to make suicide attempts. The range of suicidal ideation varies greatly from fleeting to detailed planning, role playing, and unsuccessful attempts. While thoughts about suicide are common, most people do not carry out serious actions to commit suicide. Based upon your evaluation and discussion with you, we do not believe you are currently at risk to act upon your thoughts of suicide. You have agreed to return to the Emergency Department, at any time, if you feel inclined to act upon your suicidal thoughts. FOLLOW-UP CARE: If you have been referred to a physician for follow-up care, call the physicians office for an appointment as you were instructed or within the next two days. If you experience worsening or a significant change in your symptoms, notify the physician immediately or return to the Emergency Department at any time for re-evaluation. Referrals: [facility] [Outside] - Follow up as needed Addendum entered and electronically signed by DANA LYNNE LCSWA 05/08/19 08:55: Discharge - Discharge Clinical Impression: Suicidal ideation, Marijuana abuse, Bereavement Condition: Stable Disposition: HOME, SELF-CARE Additional Instructions: You have been seen by both medical and behavioral health teams and have been deemed appropriate for discharge. You are encouraged to use your support system during this time of grief. You have been provided a local resource list of area providers if you change your mind for outpatient mental health services. DEPRESSION: Your evaluation reveals that you have mental depression. While symptoms may be vague, they often include disturbance of sleep, fatigue, loss of appetite, and general loss of interest in life. While depression may be a side effect of drugs, or a reaction to a major change in your life, many cases have no known cause. If depression is acute, and related to a major loss in your life, you can expect it to clear completely with time. If you have been depressed a long time, are prone to repeated bouts of depression or low mood, or have been thinking of suicide, get help. Depression can be treated with anti-depressant medication and counselling. Long-term depression will often take a few weeks to clear, even with appropriate medication. Follow-up care is important. SUICIDAL IDEATION: Suicidal ideation is a common medical term for thoughts about suicide, which may be as detailed as a formulated plan, without the suicidal act itself. Although most people who undergo suicidal ideation do not commit suicide, some go on to make suicide attempts. The range of suicidal ideation varies greatly from fleeting to detailed planning, role playing, and unsuccessful attempts. While thoughts about suicide are common, most people do not carry out serious actions to commit suicide. Based upon your evaluation and discussion with you, we do not believe you are currently at risk to act upon your thoughts of suicide. You have agreed to return to the Emergency Department, at any time, if you feel inclined to act upon your suicidal thoughts. FOLLOW-UP CARE: If you have been referred to a physician for follow-up care, call the physicians office for an appointment as you were instructed or within the next two days. If you experience worsening or a significant change in your symptoms, notify the physician immediately or return to the Emergency Department at any time for re-evaluation. Referrals: [facility] [Outside] - Follow up as needed Original Note: ED Psych Disorder / Suicide - General Chief Complaint: Psych Problem Stated Complaint: IVC Time Seen by Provider: 05/07/19 20:41 Mode of Arrival: Ambulatory Information source: Patient TRAVEL OUTSIDE OF THE [place] IN LAST 30 DAYS: No - HPI Patient complains to provider of: Suicidal ideation Onset: Just prior to arrival Onset was: Sudden Quality of pain: No pain Severity: None Pain Level: Denies Suicide Risk Factors: Depressed Situational problems related to: Recent , Other - Patient recently lost of 5 weeks. Suicide Attempt Method: Overdose Normal mood: Yes Associated symptoms: Depressed Similar symptoms previously: Yes Recently seen / treated by doctor: No - Related Data Allergies/Adverse Reactions: No Known Allergies Allergy (Verified 05/03/19 14:01) Past Medical History - General Information source: Patient - Social History Smoking Status: Current Every Day Smoker Frequency of alcohol use: None Drug Abuse: Marijuana Family History: Reviewed & Not Pertinent Patient has suicidal ideation: Yes Patient has homicidal ideation: Yes Renal/ Medical History: Denies: Hx Peritoneal Dialysis Psychiatric Medical History: Reports: Hx Bipolar Disorder, Hx Depression Review of Systems - Review of Systems Constitutional: No symptoms reported EENT: No symptoms reported Cardiovascular: No symptoms reported Respiratory: No symptoms reported Gastrointestinal: No symptoms reported Genitourinary: No symptoms reported Female Genitourinary: No symptoms reported Musculoskeletal: No symptoms reported Skin: No symptoms reported Hematologic/Lymphatic: No symptoms reported Neurological/Psychological: Depression, Suicidal ideation -: Yes All other systems reviewed and negative Physical Exam - Vital signs Vitals: Temp Pulse Resp BP Pulse Ox 98.5 F 90 16 92/65 L 98 05/07/19 20:30 05/07/19 20:30 05/07/19 20:30 05/07/19 20:30 05/07/19 20:30 Interpretation: Normal - General General appearance: Appears well, Alert - HEENT Head: Normocephalic, Atraumatic Eyes: Normal Pupils: PERRL - Respiratory Respiratory status: No respiratory distress Chest status: Nontender Breath sounds: Normal Chest palpation: Normal - Cardiovascular Rhythm: Regular Heart sounds: Normal auscultation Murmur: No - Abdominal Inspection: Normal Distension: No distension Bowel sounds: Normal Tenderness: Nontender Organomegaly: No organomegaly - Back Back: Normal, Nontender - Extremities General upper extremity: Normal inspection, Nontender, Normal color, Normal ROM, Normal temperature General lower extremity: Normal inspection, Nontender, Normal color, Normal ROM, Normal temperature, Normal weight bearing. No: Katerin's sign - Neurological Neuro grossly intact: Yes Cognition: Normal Orientation: AAOx4 [place] Coma Scale Eye Opening: Spontaneous Noe Coma Scale Verbal: Oriented [place] Coma Scale Motor: Obeys Commands [place] Coma Scale Total: 15 Speech: Normal Motor strength normal: LUE, RUE, LLE, RLE Sensory: Normal - Psychological Associated symptoms: Normal affect, Normal mood - Skin Skin Temperature: Warm Skin Moisture: Dry Skin Color: Normal Course - Re-evaluation Re-evalutation: 05/08/19 01:01 Patient is medically cleared for psychiatric evaluation. - Vital Signs Vital signs: Temp Pulse Resp BP Pulse Ox 98.5 F 90 16 92/65 L 98 05/07/19 20:30 05/07/19 20:30 05/07/19 20:30 05/07/19 20:30 05/07/19 20:30 - Laboratory Result Diagrams: 05/07/19 23:15 05/07/19 23:15 Laboratory results interpreted by me: 05/07/19 05/07/19 05/07/19 23:15 23:15 23:15 RDW 15.1 H Beta HCG, Quant 51.95 H Urine Protein Salicylates < 1.0 L Acetaminophen < 10 L 05/07/19 23:16 RDW Beta HCG, Quant Urine Protein 30 H Salicylates Acetaminophen Discharge - Discharge Clinical Impression: Suicidal ideation, Marijuana abuse Condition: Stable Disposition: PSYCH HOSP/UNIT
[2019-05-07 23:25] LABS: ABSOLUTE BASOPHILS # (AUTO) 0.1 10^3/uL (0.0-0.2); ABSOLUTE LYMPHOCYTES (AUTO) 1.5 10^3/uL (0.5-4.7); ABSOLUTE MONOCYTES (AUTO) 0.6 10^3/uL (0.1-1.4); ABSOLUTE NEUT (AUTO) 5.6 10^3/uL (1.7-8.2); BASOPHILS % (AUTO) 0.7 % (0-2); EOSINOPHILS % (AUTO) 0.3 % (0-6); HEMATOCRIT 40.4 % (36.0-47.0); HEMOGLOBIN 13.6 g/dL (12.0-15.5); LYMPHOCYTES % (AUTO) 18.7 % (13-45); MEAN CORPUSCULAR HEMOGLOBIN 31.3 pg (27.0-33.4); MEAN CORPUSCULAR HGB CONC 33.6 g/dL (32.0-36.0); MEAN CORPUSCULAR VOLUME 93 fl (80-97); MONOCYTES % (AUTO) 7.8 % (3-13); PLATELET COUNT 324 10^3/uL (150-450); RED BLOOD COUNT 4.33 10^6/uL (3.72-5.28); RED CELL DISTRIBUTION WIDTH 15.1 % (11.5-14.0); SEGMENTED NEUTROPHILS % (AUTO) 72.5 % (42-78); TOTAL CELLS COUNTED % (AUTO) 100 %; WHITE BLOOD COUNT 7.8 10^3/uL (4.0-10.5)
[2019-05-07 23:49] LABS: ALANINE AMINOTRANSFERASE 19 U/L (9-52); ALBUMIN 4.6 g/dL (3.5-5.0); ALKALINE PHOSPHATASE 80 U/L (38-126); ANION GAP 11 (5-19); ASPARTATE AMINO TRANSFERASE 26 U/L (14-36); BILIRUBIN,DIRECT 0.2 mg/dL (0.0-0.4); BILIRUBIN,TOTAL 0.2 mg/dL (0.2-1.3); BLOOD UREA NITROGEN 11 mg/dL (7-20); CALCIUM 10.1 mg/dL (8.4-10.2); CARBON DIOXIDE 25 mmol/L (22-30); CHLORIDE 105 mmol/L (98-107); GLUCOSE 98 mg/dL (75-110); POTASSIUM 3.9 mmol/L (3.6-5.0); SODIUM 140.7 mmol/L (137-145); TOTAL PROTEIN 7.9 g/dL (6.3-8.2)
[2019-05-07 23:53] LABS: ACETAMINOPHEN < 10 ug/mL (10-30); ALCOHOL < 10 mg/dL (NONE DETECTED); SALICYLATE < 1.0 mg/dL (2.0-20.0)
[2019-05-08 00:04] LABS: APPEARANCE,URINE SLIGHTLY-CLOUDY; BILIRUBIN,URINE NEGATIVE (NEGATIVE); COLOR,URINE YELLOW; GLUCOSE, URINE NEGATIVE (NEGATIVE); KETONES,URINE NEGATIVE (NEGATIVE); LEUKOCYTE ESTERASE,URINE NEGATIVE (NEGATIVE); NITRITE,URINE NEGATIVE (NEGATIVE); PROTEIN,URINE 30 mg/dL (NEGATIVE); URINE SPECIFIC GRAVITY 1.026; UROBILINOGEN,URINE NEGATIVE mg/dL (<2.0)
[2019-05-08 00:10] LABS: URINE AMPHETAMINES SCREEN NEGATIVE; URINE BARBITURATES SCREEN NEGATIVE; URINE BENZODIAZEPINES SCREEN NEGATIVE; URINE COCAINE SCREEN NEGATIVE; URINE MARIJUANA (THC) SCREEN UNCONFIRMED POSITIVE; URINE METHADONE SCREEN NEGATIVE; URINE PHENCYCLIDINE SCREEN NEGATIVE
[2019-05-08 05:55] VITALS: BP 113/68
--- NOTE | 2019-05-08 14:34 | PSYCHOLOGICAL NOTE ---
Psych Note - Psych Note Date seen by psych provider: 05/08/19 Time seen by psych provider: 07:40 Psych Note: Reason for Consult: IVC 19-year-old female presented to ED for IVC after she told a mental health worker that she had thoughts of suicide by taking a gun and shooting herself. Patient is alert and orientated to person, place, time and circumstance. Mood is irritable with tearful affect. Patient reports passive suicidal and homicidal ideation i.e. no plans means or intent. Patient disclosed venting in regards to her grief denies plans means intent. Delusions are absent behaviors congruent with an intact reality based presentation i.e. organized linear thought process. Eye contact was well-maintained. Conversational speech is within normal rate, tone and prosody. Intellectual abilities appear to be within the average range. Attention and concentration are currently good. Insight, judgment, impulse control are fair. bereavement substance abuse; THC no medication recommendations at this time Impression/plan: Patient is recommended for rescind of IVC and is cleared from acute psychiatric services. Patient does not meet IVC criteria per [place] GS 122C. Patient disclosed passive suicidal and homicidal ideation i.e. no plans means or intent. Patient had a miscarriage approximately 1 week ago and was referred to speak with [employer] crisis. Patient states that after repeatedly denying she finally agreed to meet with mobile farmworker [employer] last night ([facility] worker contacted the patient by phone). She disclosed she felt that she was able to speak with the worker to vent her feelings in regards to her grief and frustration. Patient demonstrated forward thinking in regards to identifying she that she is very young and has "plenty of time" to have children and that if she "harmed someone else" she would not be able to have family or children; "there would be no point, you can't have children when serving 20 years.... I even told the lady I would never do anything...I was just venting, I thought it was confidential and she could help me." Patient states she had no plans means or intent was only trying to verbalize her emotions and regarding her grief. Patient reports she is not interested in trying to seek therapeutic services after this event; however, agrees to use her natural support system of her boyfriend and friends. Patient denies wanting any other therapeutic services or medication management. Patient received a resource list of area providers including mobile crisis contact information if she changes her mind and would like professional outpatient services. Dr. Andersen was consulted to care management of this patient; 10 physicians in agreement with recommendations and disposition.
--- NOTE | 2019-05-08 22:45 | EKG REPORT ---
SEVERITY:- NORMAL ECG - SINUS RHYTHM : Confirmed by: Temitope Cruz MD 08-May-2019 22:44:12
== END 2019-05-08 09:36 | disposition home or self-care (01) ==
LOC: ER 20:21
DX: R45.851 Suicidal ideations (principal); F12.10 Cannabis abuse, uncomplicated; Z63.4 Disappearance and death of family member; F17.200 Nicotine dependence, unspecified, uncomplicated
CPT/HCPCS: 36415; 80053; 80307; 81001; 84443; 84702; 85025; 93005; 93010; 99285

== ENCOUNTER 2019-07-08 23:44 | Emergency (ER) | payer MEDICAID ==
[2019-07-08 23:50] VITALS: BP 143/78
--- NOTE | 2019-07-09 01:25 | ER Document Report ---
ED Psych Disorder / Suicide - General Chief Complaint: Psych Problem Stated Complaint: SUICIDIAL IDEATIONS Time Seen by Provider: 07/09/19 01:25 Mode of Arrival: Ambulatory Information source: Patient, Relative Notes: HISTORY OF PRESENT ILLNESS: Patient is a 19-year-old female with a past medical history of chronic depression starting after she lost her child who presents with persistent de pression. Patient reports that she "knows I need help, "but denies active suicidal/homicidal ideations. Patient reports that she has had these in the past but does not have any currently. Onset: "Months ago" Provocation: "It all started when I lost my baby" Quality: Depression Radiation: Global Severity: Moderate Timing: Constant SI/HI: None Hallucinations: None Current therapist: None Current treatment: None REVIEW OF SYSTEMS: CONSTITUTIONAL : Denies fever or chills, no sweats. Denies recent illness. EENT: Denies eye, ear, throat, or mouth pain or symptoms. Denies nasal or sinus congestion. CARDIOVASCULAR: Denies chest pain. RESPIRATORY: Denies cough, cold, or chest congestion. Denies shortness of breath, difficulty breathing, or wheezing. GASTROINTESTINAL: Denies abdominal pain. Denies nausea, vomiting, or diarrhea. Denies constipation. GENITOURINARY: Denies difficulty urinating, painful urination, burning, frequency, or blood in urine. FEMALE GENITOURINARY: Denies vaginal bleeding, abnormal or irregular periods. Last menstrual period MUSCULOSKELETAL: Denies neck or back pain or joint pain or swelling. SKIN: Denies rash or skin lesions. HEMATOLOGIC : Denies easy bruising or bleeding. LYMPHATIC: Denies swollen, enlarged glands. NEUROLOGICAL: Denies altered mental status or loss of consciousness. Denies headache. Denies weakness or paralysis or loss of use of either side. Denies problems with gait or speech. Denies sensory or motor loss. PSYCHIATRIC: Denies suicidal/homicidal thoughts. Positive for depression, denies anxiety or stress. All other systems reviewed and negative. PHYSICAL EXAMINATION: GENERAL: Well-appearing, well-nourished and in no acute distress. HEAD: Atraumatic, normocephalic. No scalp deformity, depression, or crepitance. EYES: Pupils are 3 mm and equal/round/reactive to light, extraocular movements intact, sclera anicteric, conjunctiva are normal. ENT: Nares patent bilaterally, oropharynx clear without exudates or palatal petechia. Moist mucous membranes. No tonsil hypertrophy. NECK: Normal range of motion, supple without lymphadenopathy. LUNGS: Breath sounds present, equal, and clear to auscultation bilaterally. No wheezes, rales, or rhonchi. HEART: Regular rate and rhythm without murmurs, rubs, or gallops. 2+ peripheral pulses. Normal capillary refill. ABDOMEN: Soft, nontender, nondistended. Normoactive bowel sounds. No guarding, no rebound. No masses appreciated. BACK: Normal contour, no midline tenderness. Rectal exam deferred. GENITAL/PELVC: Deferred. EXTREMITIES: Normal range of motion, no pitting or edema. No cyanosis. NEUROLOGICAL: No focal neurological deficits. Moves all extremities spontaneously and on command. PSYCH: Depressed mood, normal affect. No suicidal thoughts/ideations. No homicidal thoughts/ideations. No hallucinations. SKIN: Warm, dry, normal turgor, no rashes or lesions noted. ASSESSMENT AND PLAN: This patient is a 19-year-old female who presents with acute on chronic depression. Patient is not considered to be a harm to herself or others. 1. Will obtain medical clearance and maintain the patient to stay voluntarily until she is evaluated in the morning. 2. Will reassess in the morning. TRAVEL OUTSIDE OF THE [place] IN LAST 30 DAYS: No - HPI Patient complains to provider of: Other - Depression Onset: Other - Chronic Onset was: Gradual Quality of pain: No pain Severity: None Pain Level: Denies Suicide Risk Factors: Chronic illness, Depressed Situational problems related to: Other - Loss of a child Normal mood: No - Depressed Associated symptoms: Normal affect, Depressed Similar symptoms previously: Yes Recently seen / treated by doctor: No - Related Data Allergies/Adverse Reactions: No Known Allergies Allergy (Verified 07/08/19 23:45) Past Medical History - General Information source: Patient - Social History Smoking Status: Never Smoker Chew tobacco use (# tins/day): No Frequency of alcohol use: None Drug Abuse: None Lives with: Family Family History: Reviewed & Not Pertinent Patient has suicidal ideation: No Patient has homicidal ideation: No - Past Medical History Cardiac Medical History: Reports: None Pulmonary Medical History: Reports: None EENT Medical History: Reports: None Neurological Medical History: Reports: None Endocrine Medical History: Reports: None Renal/ Medical History: Reports: None. Denies: Hx Peritoneal Dialysis Malignancy Medical History: Reports: None GI Medical History: Reports: None Musculoskeletal Medical History: Reports None Skin Medical History: Reports None Psychiatric Medical History: Reports: Hx Bipolar Disorder, Hx Depression Traumatic Medical History: Reports: None Infectious Medical History: Reports: None Surgical Hx: Negative Past Surgical History: Reports: None - Immunizations Immunizations up to date: Yes Review of Systems - Review of Systems Constitutional: No symptoms reported EENT: No symptoms reported Cardiovascular: No symptoms reported Respiratory: No symptoms reported Gastrointestinal: No symptoms reported Genitourinary: No symptoms reported Female Genitourinary: No symptoms reported Musculoskeletal: No symptoms reported Skin: No symptoms reported Hematologic/Lymphatic: No symptoms reported Neurological/Psychological: See HPI, Depression -: Yes All other systems reviewed and negative Physical Exam - Vital signs Vitals: Temp Pulse Resp BP Pulse Ox 98.6 F 90 16 143/78 H 98 07/08/19 23:48 07/08/19 23:48 07/08/19 23:48 07/08/19 23:48 07/08/19 23:48 Interpretation: Normal Course - Re-evaluation Re-evalutation: 07/09/19 03:30 The patient is decided to leave AGAINST MEDICAL ADVICE. Patient did not tell this provider that she had current or active plans of self-harm or harming others. Patient was offered to stay voluntarily but she refused blood work and refused intervention until the morning. She was last seen leaving the department, alert and oriented, and stable. - Vital Signs Vital signs: Temp Pulse Resp BP Pulse Ox 98.6 F 90 16 143/78 H 98 07/08/19 23:48 07/08/19 23:48 07/08/19 23:48 07/08/19 23:48 07/08/19 23:48 Discharge - Discharge Clinical Impression: Depression Qualifiers: Depression Type: major depressive disorder Major depression recurrence: recurrent Active/Remission status: currently active Major depression episode severity: moderate Qualified Code(s): F33.1 - Major depressive disorder, recurrent, moderate Condition: Stable Disposition: ELOPED
[2019-07-09] MEDS ORDERED: LORAZEPAM 1 MG TABLET PO ONE (02:09)
== END 2019-07-09 03:15 | disposition left against medical advice (07) ==
LOC: ER 23:44
DX: F33.1 Major depressive disorder, recurrent, moderate (principal)
CPT/HCPCS: 99281